=== PATIENT | male | born 1985 | race Caucasian/White ===

== ENCOUNTER 2018-10-23 02:32 | Emergency (ER) | payer BC ==
[~2018-10-23] VITALS: Ht 193 cm; Wt 117.9 kg
[~2018-10-23 02:32] MED LIST: CEPHALEXIN500 MG PO; NORCO 5-325 TA1 EACH PO; PENICILLIN V P500 MG PO; TYLENOL325 MG PO
--- OUTSIDE RECORDS SUMMARY | 2018-10-23 02:34 | XMS ---
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 Care History Medical/Surgical 04/16/2018 [facility] - Patient is currently established with [facility]. If patient is seen in the ED during business hours. Please contact [facility]Ws at [facility]. Care Recommendation: This patient has had 5 or more Emergency Department visits in the last 12 months.\T\nbsp; Patient requires education on the scope and purpose of the ED as an acute care provider not a Primary Care Provider and should not be utilized for chronic conditions.\T\nbsp; These are guidelines and the provider should exercise clinical judgment when providing care. E.D. VISIT COUNT (12 MO.) 3 [facility] TOTAL 3 NOTE: Visits indicate total known visits. ED/UCC VISIT TRACKING (12 MO.) 10/23/2018 02:32 [facility] [place] TYPE: Emergency COMPLAINT: - COUGH 04/15/2018 09:19 [facility] [place] TYPE: Emergency COMPLAINT: - EYE PAIN NON INJURY DIAGNOSES: - Injury of conjunctiva and corneal abrasion without foreign body, left eye, subsequent encounter - Nicotine dependence, unspecified, uncomplicated - Unspecified scleritis, left eye - Striking against or struck by other objects, subsequent encounter - Ocular pain, left eye 04/13/2018 06:[address] [facility] [place] TYPE: Emergency COMPLAINT: - L EYE PAIN NON INJURY DIAGNOSES: - Exposure to other specified factors, initial encounter - Injury of conjunctiva and corneal abrasion without foreign body, left eye, initial encounter - Nicotine dependence, unspecified, uncomplicated INPATIENT VISIT TRACKING (12 MO.) No inpatient visits to display in this time frame [id number]
== END 2018-10-23 03:36 | disposition home or self-care (01) ==
LOC: ED 02:32
DX: J20.9 Acute bronchitis, unspecified (principal); F17.200 Nicotine dependence, unspecified, uncomplicated
CPT/HCPCS: 71046; 94640; 94664; 99283-25

== ENCOUNTER 2020-08-21 05:12 | Emergency (ER) | payer BC ==
[~2020-08-21] VITALS: Ht 193 cm; Wt 117.9 kg
[2020-08-21] MEDS ORDERED: PENICILLIN V P500 MG PO (05:39)
== END 2020-08-21 05:54 | disposition home or self-care (01) ==
LOC: ED 05:12
DX: K02.9 Dental caries, unspecified (principal); F17.200 Nicotine dependence, unspecified, uncomplicated
CPT/HCPCS: 99282

== ENCOUNTER 2021-08-15 08:33 | Emergency (ER) | payer BC ==
[~2021-08-15] VITALS: Ht 193 cm; Wt 117.9 kg
== END 2021-08-15 09:58 | disposition home or self-care (01) ==
LOC: ED 08:33
DX: T15.01XA Foreign body in cornea, right eye, initial encounter (principal); F17.200 Nicotine dependence, unspecified, uncomplicated
CPT/HCPCS: 65222; 99283-25

== ENCOUNTER 2021-10-25 09:53 | Emergency (ER) | payer BC ==
[~2021-10-25] VITALS: Ht 193 cm; Wt 117.9 kg
== END 2021-10-25 12:33 | disposition home or self-care (01) ==
LOC: ED 09:53
DX: T15.02XA Foreign body in cornea, left eye, initial encounter (principal); F17.200 Nicotine dependence, unspecified, uncomplicated
CPT/HCPCS: 65222; 99283-25

== ENCOUNTER 2021-10-25 21:51 | Emergency (ER) | payer BC ==
[~2021-10-25] VITALS: Ht 193 cm; Wt 119.4 kg
--- OUTSIDE RECORDS SUMMARY | 2021-10-25 21:58 | XMS ---
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 Care History Medical/Surgical 04/16/2018 [facility] - Patient is currently established with [facility]. If patient is seen in the ED during business hours. Please contact [facility]Ws at [facility]. Care Recommendation: This patient has had 5 [...] care. E.D. VISIT COUNT (12 MO.) 3 [facility] TOTAL 3 NOTE: Visits indicate total known visits. ED/UCC VISIT TRACKING (12 MO.) 10/25/2021 21:51 [facility] [place] TYPE: Emergency COMPLAINT: - EYE PAIN 10/25/2021 09:54 [facility] [place] TYPE: Emergency COMPLAINT: - FOREIGN OBJECT IN L EYE 08/15/2021 08:33 [facility] [place] TYPE: Emergency COMPLAINT: - EYE PROBLEM DIAGNOSES: - Other specified disorders of eye and adnexa - Foreign body in cornea, right eye, initial encounter - Nicotine dependence, unspecified, uncomplicated INPATIENT VISIT TRACKING (12 MO.) No inpatient visits to display in this time frame [email or web address]
== END 2021-10-25 22:44 | disposition home or self-care (01) ==
LOC: ED 21:51
DX: S05.02XA Injury of conjunctiva and corneal abrasion without foreign body, left eye, initial encounter (principal); W22.8XXA Striking against or struck by other objects, initial encounter; F17.200 Nicotine dependence, unspecified, uncomplicated
CPT/HCPCS: 99283

== ENCOUNTER 2023-05-25 21:09 | Emergency (ER) | payer OTHER ==
[~2023-05-25] VITALS: Ht 193 cm; Wt 119.4 kg
[2023-05-26] MEDS ORDERED: TRAMADOL HCL50 MG PO (01:20)
[2023-05-26 01:45] VITALS: BP 122/74
== END 2023-05-26 01:46 | disposition home or self-care (01) ==
LOC: ED 21:09
DX: S20.212A Contusion of left front wall of thorax, initial encounter (principal); F17.200 Nicotine dependence, unspecified, uncomplicated; W22.8XXA Striking against or struck by other objects, initial encounter
CPT/HCPCS: 71101; 71250; 99284-25; A9270

== ENCOUNTER 2025-04-11 12:24 | Emergency (ER) | payer BC ==
[~2025-04-11] VITALS: Ht 193 cm; Wt 120.2 kg
[~2025-04-11 12:24] MED LIST changes: +DIAZEPAM2 MG PO; +TRAMADOL HCL50 MG PO
[2025-04-11] MEDS ORDERED: predniSONE 20 MG TAB PO ONE (15:00)
[2025-04-11] MEDS ORDERED: PREDNISONE20 MG PO (15:05)
[2025-04-11 15:17] VITALS: BP 145/104
== END 2025-04-11 15:18 | disposition home or self-care (01) ==
LOC: ED 12:24
DX: M54.10 Radiculopathy, site unspecified (principal); F17.200 Nicotine dependence, unspecified, uncomplicated
CPT/HCPCS: 99283; J7512